=== PATIENT | male | born 1980 | race Two or more races ===

== ENCOUNTER 2021-05-26 12:10 | Emergency (ER) | payer BC, OTHER ==
[~2021-05-26] VITALS: Ht 180.3 cm; Wt 149.7 kg
[2021-05-26] MEDS ORDERED: SODIUM CHLORIDE 0.9% 1,000 ML IV ONE (12:30)
[2021-05-26] MEDS ORDERED: methylPREDNISolone SOD SUCC 125 MG/2 ML VL IV ONE (12:30)
[2021-05-26 13:45] LABS: Basophils # (auto) 0 10 ^3/uL (0-0.2); Basophils % (auto) 0.9 % (0.0-2.0); Eosinophils # (auto) 0 10 ^3/uL (0-0.8); Eosinophils % (auto) 0.3 % (0.0-7.0); Hematocrit 47.1 % (41.0-53.0); Lymphocytes # (auto) 0.5 10 ^3/uL (0.4-5.4); Lymphocytes % (auto) 17.9 % (10.0-50.0); Mean Corpuscular Hgb Conc. 34.1 g/dL (32.0-36.0); Mean Corpuscular Volume 91.2 fL (80.0-100.0); Monocytes # (auto) 0.3 10 ^3/uL (0-1.3); Monocytes % (auto) 10.9 % (0.0-12.0); Neutrophils # (auto) 2.1 10 ^3/uL (1.6-8.6); Nucleated Red Blood Cells % 0.4 %; Red Blood Cells 5.17 10^6/uL (4.5-5.90); Red Cell Distribution Width 13.3 % (11.8-14.3); White Blood Cell 3.1 10^3/uL (4.4-10.8)
[2021-05-26 14:04] LABS: Potassium 4.1 mmol/L (3.5-5.1)
[2021-05-26 14:12] LABS: Albumin 3.5 g/dL (3.4-5.0); BUN/Creatinine Ratio 17.1; Bilirubin, Total 0.6 mg/dL (0.2-1.0); Calcium 7.4 mg/dL (8.5-10.1); Total Protein 6.5 g/dL (6.4-8.2)
[2021-05-26] MEDS ORDERED: AZIT1POW PO (15:06)
[2021-05-26] MEDS ORDERED: ZINC220C8 PO (15:06)
[2021-05-26] MEDS ORDERED: METH4PAK PO (15:06)
[2021-05-26] MEDS ORDERED: ONDA-144 PO (15:06)
[2021-05-26 20:45] VITALS: BP 147/78
== END 2021-05-26 21:04 | disposition home or self-care (01) ==
LOC: ER 12:18 → EDSEX 12:18 → ER 21:04
DX: U07.1 COVID-19 (principal); J12.82 Pneumonia due to coronavirus disease 2019
CPT/HCPCS: 36415; 71045; 80053; 85025; 87426; 96361; 96374; 99284; J2930; J7030